=== PATIENT | female | born 1995 | race African-American/Black ===

== ENCOUNTER 2018-08-20 19:25 | Emergency (ER) | payer OTHER ==
[2018-08-20] MEDS ORDERED: traMADol HCl 50 MG TAB ONE (21:02)
== END 2018-08-20 21:38 | disposition home or self-care (01) ==
LOC: ERS 19:25
DX: N12 Tubulo-interstitial nephritis, not specified as acute or chronic (principal); F41.9 Anxiety disorder, unspecified
CPT/HCPCS: 99284